=== PATIENT | male | born 1985 | race Caucasian/White ===

== ENCOUNTER 2017-11-25 16:25 | Emergency (ER) | payer SELFPAY ==
[2017-11-25] MEDS ORDERED: Ketorolac 60 MG/2 ML SDV IM ONE (16:45)
--- NOTE | 2017-11-25 17:46 | EDM.PDOC ---
ED HPI GENERAL MEDICAL PROBLEM - General Chief Complaint: Upper Extremity Injury/Pain Stated Complaint: RT ELBOW SWOLLEN Time Seen by Provider: 11/25/17 16:34 Source of Information: Reports: Patient History Limitations: Reports: No Limitations - History of Present Illness INITIAL COMMENTS - FREE TEXT/NARRATIVE: History of present illness: []Patient started having right elbow pain, redness and swelling last night. 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 He denies any trauma fevers, numbness, tingling or weakness. Review of systems: As per history of present illness and below otherwise all systems reviewed and negative. Past medical history: As per history of present illness and as reviewed below otherwise noncontributory. Surgical history: As per history of present illness and as reviewed below otherwise noncontributory. Social history: No reported history of drug or alcohol abuse. Family history: As per history of present illness and as reviewed below otherwise noncontributory. Physical exam: General: Well developed, well nourished in NAD HEENT: Atraumatic, normocephalic, pupils reactive, negative for conjunctival pallor or scleral icterus, mucous membranes moist, throat clear, neck supple, nontender, trachea midline. Lungs: Clear to auscultation, breath sounds equal bilaterally, chest nontender. Heart: S1S2, regular, negative for clicks, rubs, or JVD. Abdomen: Soft, nondistended, nontender. Negative for masses or hepatosplenomegaly. Negative for costovertebral tenderness. Pelvis: Stable nontender. Genitourinary: Deferred. Rectal: Deferred. Extremities: Atraumatic there is a small abrasion on the elbow is mild erythema and tissue edema around the elbow or arm or forearm. Full range of motion distal sensation is intact, negative for cords or calf pain. Neurovascular unremarkable. Neuro: Awake, alert, oriented. Cranial nerves II through XII unremarkable. Cerebellum unremarkable. Motor and sensory unremarkable throughout. Exam nonfocal. Diagnostics: []CBC normal, sedimentation rate=6 , elbow x-ray negative for fracture, positive posterior soft tissue swelling but no fluid Therapeutics: []Toradol, ice for pain Impression: []Left elbow cellulitis Plan: []Keflex 4 times a day, tramadol for pain, Motrin use ice and warm packs. PMD within 1 week or return to ER if symptoms worsen or change Definitive disposition and diagnosis as appropriate pending reevaluation and review of above. Right Elbow Pain Score (Numeric/FACES): 7 - Related Data Allergies Allergy/AdvReac Type Severity Reaction Status Date / Time No Known Allergies Allergy Verified 11/25/17 16:34 Home Meds: Home Meds cephALEXin [Keflex] 500 mg PO Q8H #21 cap 11/25/17 [Rx] traMADol HCl [Tramadol HCl] 50 mg PO Q6H PRN #16 tablet 11/25/17 [Rx] Past Medical History - Past Health History Medical/Surgical History: Denies Medical/Surgical History Social & Family History - Family History Family Medical History: Noncontributory - Tobacco Use Smoking Status *Q: Former Smoker Years of Tobacco use: 10 Used Tobacco, but Quit: Yes Month/Year Tobacco Last Used: 2017 Second Hand Smoke Exposure: No - Caffeine Use Caffeine Use: Reports: Coffee, Energy Drinks - Recreational Drug Use Recreational Drug Use: No Review of Systems - Review of Systems Review Of Systems: ROS reveals no pertinent complaints other than HPI. ED EXAM, GENERAL - Physical Exam Exam: See Below (See history of present illness) Course - Vital Signs Last Recorded V/S: Last Vital Signs Temp 98.4 F 11/25/17 18:02 Pulse 76 11/25/17 18:02 Resp 15 11/25/17 18:02 BP 112/70 11/25/17 18:02 Pulse Ox 97 11/25/17 18:02 - Orders/Labs/Meds Orders: Active Orders 24 hr Category Date Time Status Elbow Min 3V Rt [CR] Stat Exams 11/25/17 16:35 Taken Labs: Laboratory Tests 11/25/17 Range/Units 16:47 WBC 10.45 (4.0-11.0) K/uL RBC 5.00 (4.50-5.90) M/uL Hgb 15.6 (13.0-17.0) g/dL Hct 44.1 (38.0-50.0) % MCV 88.2 (80.0-98.0) fL MCH 31.2 (27.0-32.0) pg MCHC 35.4 (31.0-37.0) g/dL RDW Std Deviation 42.8 (28.0-62.0) fl RDW Coeff of Andrez 13 (11.0-15.0) % Plt Count 310 (150-400) K/uL MPV 9.30 (7.40-12.00) fL Neut % (Auto) 78.8 (48.0-80.0) % Lymph % (Auto) 10.7 L (16.0-40.0) % Brantley % (Auto) 9.3 (0.0-15.0) % Eos % (Auto) 0.8 (0.0-7.0) % Baso % (Auto) 0.4 (0.0-1.5) % Neut # (Auto) 8.2 H (1.4-5.7) K/uL Lymph # (Auto) 1.1 (0.6-2.4) K/uL Brantley # (Auto) 1.0 H (0.0-0.8) K/uL Eos # (Auto) 0.1 (0.0-0.7) K/uL Baso # (Auto) 0.0 (0.0-0.1) K/uL Nucleated RBC % 0.0 /100WBC Nucleated RBCs # 0 K/uL ESR 6 (0-14) mm/hr Meds: Medications Discontinued Medications Generic Name Dose Route Start Last Admin Trade Name Freq PRN Reason Stop Dose Admin Ketorolac Tromethamine 60 mg 11/25/17 16:45 11/25/17 16:51 Toradol IM 11/25/17 16:46 60 mg ONETIME ONE Administration Departure - Departure Time of Disposition: 17:45 Disposition: Home, Self-Care 01 Condition: Good Clinical Impression: Cellulitis of right elbow - Discharge Information *PRESCRIPTION DRUG MONITORING PROGRAM REVIEWED*: Not Applicable Prescriptions: cephALEXin [Keflex] 500 mg PO Q8H #21 cap traMADol HCl [Tramadol HCl] 50 mg PO Q6H PRN #16 tablet PRN Reason: Pain Instructions: Cellulitis, Adult, [id number] Referrals: PCP,None [Primary Care Provider] - Forms: ED Department Discharge Additional Instructions: The following information is given to patients seen in the emergency department who are being discharged to home. This information is to outline your options for follow-up care. We provide all patients seen in our emergency department with a follow-up referral. The need for follow-up, as well as the timing and circumstances, are variable depending upon the specifics of your emergency department visit. If you don't have a primary care physician on staff, we will provide you with a referral. We always advise you to contact your personal physician following an emergency department visit to inform them of the circumstance of the visit and for follow-up with them and/or the need for any referrals to a consulting specialist. The emergency department will also refer you to a specialist when appropriate. This referral assures that you have the opportunity for follow-up care with a specialist. All of these measure are taken in an effort to provide you with optimal care, which includes your follow-up. Under all circumstances we always encourage you to contact your private physician who remains a resource for coordinating your care. When calling for follow-up care, please make the office aware that this follow-up is from your recent emergency room visit. If for any reason you are refused follow-up, please contact the [facility] Emergency Department at and asked to speak to the emergency department charge nurse. Tramadol, Keflex as directed since he for comfort follow-up with primary care within 1 week, return to ER if symptoms worsen or change. [facility] [address] [place] [address] - My Orders Last 24 Hours: My Active Orders 11/25/17 16:35 Elbow Min 3V Rt [CR] Stat - Assessment/Plan Last 24 Hours: My Active Orders 11/25/17 16:35 Elbow Min 3V Rt [CR] Stat
--- NOTE | 2017-11-26 16:21 | CR ---
EXAM DATE: 11/25/17 PATIENT'S AGE: 32 Patient: YULIA KENT Facility: [place], [place] Site . Site : 1985 Study: XRay Extremity Right elbow [id number] 5:01:19 PM Ordering Physician: Doctor Vazquez Final Report: INDICATION: swelling, no injury TECHNIQUE: Three views of the right elbow COMPARISON: None FINDINGS: Bones: No fractures or bone lesions. Joint spaces: Unremarkable. Soft tissues: Posterior soft tissue swelling about the right elbow IMPRESSION: Posterior soft tissue swelling about the right elbow. No acute bony abnormality. Dictated by Jeremy Acosta MD @ 11/25/2017 5:40:02 PM Dictated by: Jeremy Acosta MD @ 11/25/2017 17:40:10 (Electronic Signature) Report Signed by Proxy. [facility] HOSPITALJayson
== END 2017-11-25 18:04 | disposition home or self-care (01) ==
LOC: MW.ED 16:25 → EDBD 16:25 → MW.ED 18:04
DX: L03.113 Cellulitis of right upper limb (principal); L03.114 Cellulitis of left upper limb; Z79.899 Other long term (current) drug therapy; Z87.891 Personal history of nicotine dependence
CPT/HCPCS: 36415; 73080; 85025; 85652; 96372; 99283; J1885

== ENCOUNTER 2017-11-28 14:36 | Emergency (ER) | payer SELFPAY ==
[2017-11-28] MEDS ORDERED: Sodium Chloride 0.9% 1,000 ML IV ONE (14:54)
[2017-11-28] MEDS ORDERED: Ondansetron 4 MG/2 ML SDV IVPUSH ONE (15:00)
[2017-11-28] MEDS ORDERED: Morphine 4 MG/ML Syringe IVPUSH ONE (15:00)
[2017-11-28] MEDS ORDERED: Morphine 2 MG/ML Syringe IVPUSH ONE (15:29)
[2017-11-28 15:31] LABS: CHLORIDE,CL 102 mmol/L (98-107); SODIUM,NA 138 mmol/L (136-148)
--- NOTE | 2017-11-28 15:44 | EDM.PDOC ---
ED HPI GENERAL MEDICAL PROBLEM - General Chief Complaint: Upper Extremity Injury/Pain Stated Complaint: RT ELBOW PAIN Time Seen by Provider: 11/28/17 14:37 Source of Information: Reports: Patient History Limitations: Reports: No Limitations - History of Present Illness INITIAL COMMENTS - FREE TEXT/NARRATIVE: HISTORY AND PHYSICAL: History of present illness: Patient is a 32-year-old male who is brought to the emergency room with complaints of right elbow pain and swelling. He was evaluated in the emergency room on 11/25/17 for cellulitis of the right elbow. He had an x-ray which was negative for fracture. Placed on Keflex 4 times daily which she reports he is still taking and has not seen any improvement. He reports that the swelling is more significant. Increased tenderness with palpation. He denies any fever, chills, chest pain or shortness of breath. Denies any GI or symptoms. Denies any numbness or tingling to the affected extremity. Review of systems: As per history of present illness and below otherwise all systems reviewed and negative. Past medical history: As per history of present illness and as reviewed below otherwise noncontributory. Surgical history: As per history of present illness and as reviewed below otherwise noncontributory. Social history: No reported history of drug or alcohol abuse. Family history: As per history of present illness and as reviewed below otherwise noncontributory. Physical exam: General: Well-developed and well-nourished 32-year-old male. Alert and oriented. Nontoxic appearing and in no acute distress. HEENT: Atraumatic, normocephalic, pupils equal and reactive bilaterally, negative for conjunctival pallor or scleral icterus, mucous membranes moist, throat clear, neck supple, nontender, trachea midline. No drooling or trismus noted. No meningeal signs Lungs: Clear to auscultation, breath sounds equal bilaterally, chest nontender. Heart: S1S2, regular rate and rhythm without overt murmur Abdomen: Soft, nondistended, nontender. Negative for masses or hepatosplenomegaly. Negative for costovertebral tenderness. Skin: Soft tissue swelling and tenderness to the right mid forearm extending up to the olecron. Mild errytema. Otherwise skin is intact, warm, dry. No lesions or rashes noted. Extremities: Atraumatic, soft tissue swelling and tenderness to the mid forearm extending up to the olecron. Mild errytema noted. He is able to flex and extend the elbow/wrist/fingers without difficulty or pain. Strong radial pulses bilaterally. Cap refill less than 3 seconds. Neurovascular unremarkable. Neuro: Awake, alert, oriented. Cranial nerves II through XII unremarkable. Cerebellum unremarkable. Motor and sensory unremarkable throughout. Exam nonfocal. Notes: Patient is very tender with palpation, even light touch to the right elbow and forearm. Strong radial pulse, good cap refill. He is agreeable to receiving lab work and an ultrasound at this time. Ultrasound shows subcutaneous edema and non-loculated subcutaneous fluid in the dorsal right forearm and over the dorsal right elbow. Patient is vascularly intact with no evidence of blood clots. This information was shared with the patient. Dr Romo was consulted on this case and is agreeable to keeping this patient for IV antibiotics. Patient at this time declines being admitted. He is agreeable to following up with his primary care provider and/or return tomorrow morning for reevaluation. The area was outlined with a surgical marker for his re-eval tomorrow. Will switch the patient to Bactrim DS. He is out of his Tramadol and requesting something additional, "I burned through those so fast". VSS. Signs and symptoms that would prompt him to return to the emergency room were reviewed and discussed. He is agreeable to plan of care. He denies any further questions at this time. Diagnostics: CBC, CMP, CRP, blood cultures, ultrasound right upper extremity (vascular/ nonvascular) Therapeutics: IV fluid, morphine, Zofran Impression: Cellulitis, right upper extremity Plan: 1. You declined admission today. Please provide limb rest and elevation to help reduce swelling. Continue to watch the area closely. 2. Bactrim DS 1 tab twice daily 10 days. 3. Tylenol and/or ibuprofen as needed for pain management. [place] 1-2 tabs every 4-6 hours as needed for pain, this will cause drowsiness a do not take it will driving her needing to be functioning outside of the house. 4. Follow-up with your primary care provider tomorrow for reevaluation. Return to the ED as needed and as discussed. Definitive disposition and diagnosis as appropriate pending reevaluation and review of above. right forearm Pain Score (Numeric/FACES): 10 - Related Data Allergies Allergy/AdvReac Type Severity Reaction Status Date / Time No Known Allergies Allergy Verified 11/25/17 16:34 Home Meds: Home Meds cephALEXin [Keflex] 500 mg PO Q8H #21 cap 11/25/17 [Rx] traMADol HCl [Tramadol HCl] 50 mg PO Q6H PRN #16 tablet 11/25/17 [Rx] Past Medical History - Past Health History Medical/Surgical History: Denies Medical/Surgical History Social & Family History - Family History Family Medical History: Noncontributory - Tobacco Use Tobacco Use Comment: states he "vapes" - Caffeine Use Caffeine Use: Reports: Coffee, Energy Drinks - Recreational Drug Use Recreational Drug Use: No Review of Systems - Review of Systems Review Of Systems: ROS reveals no pertinent complaints other than HPI. ED EXAM, GENERAL - Physical Exam Exam: See Below (See dictation) Course - Vital Signs Last Recorded V/S: Last Vital Signs Temp 98.1 F 11/28/17 14:59 Pulse 84 11/28/17 14:59 Resp 16 11/28/17 14:59 BP 119/77 11/28/17 14:59 Pulse Ox 94 L 11/28/17 14:59 - Orders/Labs/Meds Orders: Active Orders 24 hr Category Date Time Status Communication Order [RC] STAT Care 11/28/17 17:17 Ordered Extremity Non Vascular Rt [US] Stat Exams 11/28/17 15:53 Taken Venous Doppler Upr Ext Rt [US] Stat Exams 11/28/17 15:00 Taken CULTURE BLOOD [BC] Stat Lab 11/28/17 14:58 Received CULTURE BLOOD [BC] Stat Lab 11/28/17 15:28 Received Sodium Chloride 0.9% [Normal Saline] 1,000 ml Med 11/28/17 14:54 Active IV STAT Blood Culture x2 Reflex Set [OM.PC] Stat Oth 11/28/17 14:54 Ordered Medication Orders Sodium Chloride (Normal Saline) 1,000 mls @ 125 mls/hr IV STAT ONE Stop: 11/28/17 22:53 Last Admin: 11/28/17 15:33 Dose: 125 mls/hr Labs: Laboratory Tests 11/28/17 11/28/17 Range/Units 14:58 14:58 WBC 8.87 (4.0-11.0) K/uL RBC 4.41 L (4.50-5.90) M/uL Hgb 13.7 (13.0-17.0) g/dL Hct 39.3 (38.0-50.0) % MCV 89.1 (80.0-98.0) fL MCH 31.1 (27.0-32.0) pg MCHC 34.9 (31.0-37.0) g/dL RDW Std Deviation 42.4 (28.0-62.0) fl RDW Coeff of Andrze 13 (11.0-15.0) % Plt Count 308 (150-400) K/uL MPV 9.40 (7.40-12.00) fL Neut % (Auto) 74.7 (48.0-80.0) % Lymph % (Auto) 17.2 (16.0-40.0) % Borden % (Auto) 6.7 (0.0-15.0) % Eos % (Auto) 1.1 (0.0-7.0) % Baso % (Auto) 0.3 (0.0-1.5) % Neut # (Auto) 6.6 H (1.4-5.7) K/uL Lymph # (Auto) 1.5 (0.6-2.4) K/uL Borden # (Auto) 0.6 (0.0-0.8) K/uL Eos # (Auto) 0.1 (0.0-0.7) K/uL Baso # (Auto) 0.0 (0.0-0.1) K/uL Nucleated RBC % 0.0 /100WBC Nucleated RBCs # 0 K/uL Sodium 138 (136-148) mmol/L Potassium 3.8 (3.5-5.1) mmol/L Chloride 102 (98-107) mmol/L Carbon Dioxide 28.6 (21.0-32.0) mmol/L BUN 13 (7.0-18.0) mg/dL Creatinine 0.9 (0.8-1.3) mg/dL Est Cr Clr Drug Dosing 134.46 mL/min Estimated GFR (MDRD) > 60.0 ml/min Glucose 102 (74-106) mg/dL Uric Acid 6.0 (2.6-7.2) mg/dL Calcium 8.6 (8.5-10.1) mg/dL Total Bilirubin 0.3 (0.2-1.0) mg/dL AST 12 L (15-37) IU/L ALT 21 (14-63) IU/L Alkaline Phosphatase 60 (46-116) U/L C-Reactive Protein 55.70 H (0.00-0.90) mg/dL Total Protein 7.4 (6.4-8.2) g/dL Albumin 3.4 (3.4-5.0) g/dL Globulin 4.0 H (2.0-3.5) g/dL Albumin/Globulin Ratio 0.9 L (1.3-2.8) Meds: Medications Generic Name Dose Route Start Last Admin Trade Name Freq PRN Reason Stop Dose Admin Sodium Chloride 1,000 mls @ 125 mls/hr 11/28/17 14:54 11/28/17 15:33 Normal Saline IV 11/28/17 22:53 125 mls/hr STAT ONE Administration Discontinued Medications Generic Name Dose Route Start Last Admin Trade Name Freq PRN Reason Stop Dose Admin Vancomycin HCl 1 gm/ Sodium 250 mls @ 250 mls/hr 11/28/17 17:13 11/28/17 17: 22 Chloride IV 11/28/17 18:12 Not Given ONETIME ONE Morphine Sulfate 4 mg 11/28/17 15:00 11/28/17 15:41 Morphine IVPUSH 11/28/17 15:01 Not Given ONETIME ONE Morphine Sulfate 4 mg 11/28/17 15:29 11/28/17 15:43 Morphine IVPUSH 11/28/17 15:30 4 mg ONETIME ONE Administration Ondansetron HCl 4 mg 11/28/17 15:00 11/28/17 15:33 Zofran IVPUSH 11/28/17 15:01 4 mg ONETIME ONE Administration Departure - Departure Time of Disposition: 17:26 Disposition: Home, Self-Care 01 Clinical Impression: Cellulitis of right elbow - Discharge Information Instructions: Cellulitis, Adult, [id number] Referrals: PCP,Unknown [Primary Care Provider] - Forms: ED Department Discharge Additional Instructions: The following information is given to patients seen in the emergency department who are being discharged to home. This information is to outline your options for follow-up care. We provide all patients seen in our emergency department with a follow-up referral. The need for follow-up, as well as the timing and circumstances, are variable depending upon the specifics of your emergency department visit. If you don't have a primary care physician on staff, we will provide you with a referral. We always advise you to contact your personal physician following an emergency department visit to inform them of the circumstance of the visit and for follow-up with them and/or the need for any referrals to a consulting specialist. The emergency department will also refer you to a specialist when appropriate. This referral assures that you have the opportunity for follow-up care with a specialist. All of these measure are taken in an effort to provide you with optimal care, which includes your follow-up. Under all circumstances we always encourage you to contact your private physician who remains a resource for coordinating your care. When calling for follow-up care, please make the office aware that this follow-up is from your recent emergency room visit. If for any reason you are refused follow-up, please contact the [facility] Emergency Department at and asked to speak to the emergency department charge nurse. [facility] [address] [place] [address] 1. You declined admission today. Please provide limb rest and elevation to help reduce swelling. Continue to watch the area closely. 2. Bactrim DS 1 tab twice daily 10 days. 3. Tylenol and/or ibuprofen as needed for pain management. [place] 1-2 tabs every 4-6 hours as needed for pain, this will cause drowsiness a do not take it will driving her needing to be functioning outside of the house. 4. Follow-up with your primary care provider tomorrow for reevaluation. Return to the ED as needed and as discussed. - My Orders Last 24 Hours: My Active Orders 11/28/17 14:54 Sodium Chloride 0.9% [Normal Saline] 1,000 ml IV STAT Blood Culture x2 Reflex Set [OM.PC] Stat 11/28/17 14:58 CULTURE BLOOD [BC] Stat 11/28/17 15:00 Venous Doppler Upr Ext Rt [US] Stat 11/28/17 15:28 CULTURE BLOOD [BC] Stat 11/28/17 15:53 Extremity Non Vascular Rt [US] Stat 11/28/17 17:17 Communication Order [RC] STAT - Assessment/Plan Last 24 Hours: My Active Orders 11/28/17 14:54 Sodium Chloride 0.9% [Normal Saline] 1,000 ml IV STAT Blood Culture x2 Reflex Set [OM.PC] Stat 11/28/17 14:58 CULTURE BLOOD [BC] Stat 11/28/17 15:00 Venous Doppler Upr Ext Rt [US] Stat 11/28/17 15:28 CULTURE BLOOD [BC] Stat 11/28/17 15:53 Extremity Non Vascular Rt [US] Stat 11/28/17 17:17 Communication Order [RC] STAT
--- NOTE | 2017-11-29 14:10 | US ---
EXAM DATE: 11/28/17 PATIENT'S AGE: 32 Patient: YULIA KENT Facility: [place], [place] Site . Site : 1985 Study: US Extremity [id number]/[id number] 4:49:06 PM Ordering Physician: Doctor Vazquez Final Report: HISTORY: Right elbow swelling. TECHNIQUE: Ultrasound of the right upper extremity deep veins using boucher-scale, color Doppler, and spectral Doppler. COMPARISON: None. FINDINGS: Right: Internal jugular vein is patent and compressible. Subclavian is patent. Axillary vein is patent and compressible. Brachial vein is patent and compressible. Radial and ulnar veins are patent and compressible. Basilic and cephalic veins are patent and compressible. Left: Internal jugular vein is patent and compressible. IMPRESSION: No right upper extremity DVT. Dictated by Dylon Shultz MD @ Nov 28 2017 4:58PM (Electronic Signature) Report Signed by Proxy. TOYA
--- NOTE | 2017-11-29 14:26 | US ---
EXAM DATE: 11/28/17 PATIENT'S AGE: 32 Patient: YULIA KENT Facility: [place], [place] Site . Site : 1985 Study: US Extremity [id number] 4:50:02 PM Ordering Physician: Doctor Vazquez Final Report: HISTORY: Right elbow soft tissue swelling. TECHNIQUE: Targeted ultrasound of the soft tissues around the right elbow. COMPARISON: None. FINDINGS: Subcutaneous edema and non loculated subcutaneous fluid in the dorsal right forearm and over the dorsal right elbow. No well-defined fluid collection. IMPRESSION: Subcutaneous edema and non loculated subcutaneous fluid in the dorsal right forearm and over the dorsal right elbow Dictated by Dylon Shultz MD @ Nov 28 2017 4:59PM (Electronic Signature) Report Signed by Proxy. TOYA
== END 2017-11-28 17:33 | disposition home or self-care (01) ==
LOC: MW.ED 14:36
DX: L03.113 Cellulitis of right upper limb (principal)
CPT/HCPCS: 76881; 80053; 84550; 85025; 86140; 87040; 93971; 96361; 96374; 96375; 99284; J2270; J2405; J7040; 99283

== ENCOUNTER 2017-11-29 21:46 | Emergency (ER) | payer SELFPAY ==
--- NOTE | 2017-11-29 22:04 | EDM.PDOC ---
ED HPI GENERAL MEDICAL PROBLEM - General Chief Complaint: Upper Extremity Injury/Pain Stated Complaint: PAIN RT ARM Time Seen by Provider: 11/29/17 22:04 Source of Information: Reports: Patient - History of Present Illness INITIAL COMMENTS - FREE TEXT/NARRATIVE: HISTORY AND PHYSICAL: History of present illness: [Patient is been in several times over the last 5 days he is here for recheck of his elbow is advised follow-up in the clinic however he interpreted that is coming back to the emergency room for recheck However he was on 3 days of Keflex and is on his second day of Bactrim with good results and after 3 Bactrim tablets swelling is significantly improved there is no redness or tenderness, no fluctuance. there is still remains some mild swelling on the anterior forearm but there is no redness or tenderness involved no fever nausea vomiting chills sweats no chest pain shortness breath headache dizziness palpitation no bowel or urine symptoms ] Review of systems: As per history of present illness and below otherwise all systems reviewed and negative. Past medical history: As per history of present illness and as reviewed below otherwise noncontributory. Surgical history: As per history of present illness and as reviewed below otherwise noncontributory. Social history: No reported history of drug or alcohol abuse. Family history: As per history of present illness and as reviewed below otherwise noncontributory. Physical exam: HEENT: Atraumatic, normocephalic, pupils reactive, negative for conjunctival pallor or scleral icterus, mucous membranes moist, throat clear, neck supple, nontender, trachea midline. Lungs: Clear to auscultation, breath sounds equal bilaterally, chest nontender. Heart: S1S2, regular, negative for clicks, rubs, or JVD. Abdomen: Soft, nondistended, nontender. Negative for masses or hepatosplenomegaly. Negative for costovertebral tenderness. Pelvis: Stable nontender. Genitourinary: Deferred. Rectal: Deferred. Extremities: Atraumatic, negative for cords or calf pain. Neurovascular unremarkable. Neuro: Awake, alert, oriented. Cranial nerves II through XII unremarkable. Cerebellum unremarkable. Motor and sensory unremarkable throughout. Exam nonfocal. Skin as per history of present illness otherwise unremarkable Diagnostics: [Clinical ] Therapeutics: [Bactrim as directed Follow-up with clinic in approximately 10 days Return if symptoms persist or worsen ] Impression: [ cellulitis improved ] Definitive disposition and diagnosis as appropriate pending reevaluation and review of above. - Related Data Allergies Allergy/AdvReac Type Severity Reaction Status Date / Time No Known Allergies Allergy Verified 11/29/17 21:56 Home Meds: Home Meds cephALEXin [Keflex] 500 mg PO Q8H #21 cap 11/25/17 [Rx] traMADol HCl [Tramadol HCl] 50 mg PO Q6H PRN #16 tablet 11/25/17 [Rx] Past Medical History - Past Health History Medical/Surgical History: Denies Medical/Surgical History HEENT History: Reports: None Cardiovascular History: Reports: None Respiratory History: Reports: None Gastrointestinal History: Reports: None Genitourinary History: Reports: None Musculoskeletal History: Reports: None Neurological History: Reports: None Psychiatric History: Reports: None Endocrine/Metabolic History: Reports: None Hematologic History: Reports: None Oncologic (Cancer) History: Reports: None Dermatologic History: Reports: None - Past Surgical History Head Surgeries/Procedures: Reports: None Male Surgical History: Reports: None Social & Family History - Family History Family Medical History: Noncontributory - Caffeine Use Caffeine Use: Reports: None - Recreational Drug Use Recreational Drug Use: No Review of Systems - Review of Systems Review Of Systems: See Below ED EXAM, GENERAL - Physical Exam Exam: See Below Course - Vital Signs Last Recorded V/S: Last Vital Signs Temp 96.9 F 11/29/17 21:53 Pulse 84 11/29/17 21:53 Resp 18 11/29/17 21:53 BP 139/95 H 11/29/17 21:53 Pulse Ox 98 11/29/17 21:53 Departure - Departure Time of Disposition: 22:11 Disposition: Home, Self-Care 01 Condition: Good Clinical Impression: Cellulitis of right elbow - Discharge Information Referrals: PCP,None [Primary Care Provider] - Forms: ED Department Discharge Additional Instructions: The following information is given to patients seen in the emergency department who are being discharged to home. This information is to outline your options for follow-up care. We provide all patients seen in our emergency department with a follow-up referral. The need for follow-up, as well as the timing and circumstances, are variable depending upon the specifics of your emergency department visit. If you don't have a primary care physician on staff, we will provide you with a referral. We always advise you to contact your personal physician following an emergency department visit to inform them of the circumstance of the visit and for follow-up with them and/or the need for any referrals to a consulting specialist. The emergency department will also refer you to a specialist when appropriate. This referral assures that you have the opportunity for follow-up care with a specialist. All of these measure are taken in an effort to provide you with optimal care, which includes your follow-up. Under all circumstances we always encourage you to contact your private physician who remains a resource for coordinating your care. When calling for follow-up care, please make the office aware that this follow-up is from your recent emergency room visit. If for any reason you are refused follow-up, please contact the [facility] emergency department at and asked to speak to the emergency department charge nurse.
== END 2017-11-29 22:20 | disposition home or self-care (01) ==
LOC: MW.ED 21:46
DX: L03.113 Cellulitis of right upper limb (principal)
CPT/HCPCS: 99282; 99283